=== PATIENT | female | born 2000 | race Caucasian/White ===

== ENCOUNTER 2024-02-28 12:09 | Inpatient (IN) | payer MEDICAID, SELFPAY ==
[2024-02-28 12:53] VITALS: BMI 25.2
[2024-02-28] MEDS ORDERED: Acetaminophen 500 MG TAB PO PRN (13:26)
[2024-02-28] MEDS ORDERED: Ondansetron PF 4 MG/2 ML Vial IVP PRN (13:26)
[2024-02-28] MEDS ORDERED: hydrALAZINE 20 MG/ML VIAL SLOW IVP PRN (13:26)
[2024-02-28 13:35] LABS: #Basophils 0.02 10x3/uL (0.0-0.2); #Eosinophils 0.05 10x3/uL (0.0-0.5); #Monocytes 0.38 10x3/uL (0.0-1.1); #Neutrophils 5.22 10x3/uL (1.5-8.4); %Basophils 0.3 % (0.0-2.0); %Eosinophils 0.7 % (0.0-6.0); %Lymphocytes 20.7 % (18.0-47.0); %Monocytes 5.3 % (0.0-10.0); %Neutrophils 72.4 % (40.0-75.0); Hematocrit 31.1 % (34.9-44.5); Hemoglobin 10.6 g/dL (12.0-15.5); Mean Corpuscular HGB CONC 34.1 g/dL (32.0-36.0); Mean Corpuscular Hemoglobin 29.9 pg (27.0-33.0); Mean Corpuscular Volume 87.9 fL (81.6-98.3); Mean Platelet Volume 9.9 fL (7.4-10.4); Platelet Count 287 10x3/uL (150-450); RBC Distribution Width 13.5 % (11.5-14.5); Red Blood Cell (RBC) Count 3.54 10x6/uL (3.90-5.03); White Blood Cell (WBC) Count 7.2 10x3/uL (3.5-10.5)
[2024-02-28] MEDS ORDERED: Ondansetron ODT 4 MG TAB PO PRN (13:45)
[2024-02-28] MEDS ORDERED: Acetaminophen 650 MG Suppository PR PRN (13:45)
[2024-02-28] MEDS ORDERED: Acetaminophen 325 MG TAB PO PRN (13:45)
[2024-02-28 13:53] LABS: ALT (SGPT) 61 U/L (8-55); AST (SGOT) 92 U/L (5-34); Albumin 2.7 g/dL (3.5-5.0); Alkaline Phosphatase 74 U/L (40-110); Anion Gap 13 mmol/L (10-20); BUN (Urea Nitrogen) 7 mg/dL (7.0-18.7); Bilirubin, Total 0.6 mg/dL (0.2-1.2); Calc. Creatinine Clearance 147 mL/min (70-130); Calcium 8.2 mg/dL (7.8-10.44); Carbon Dioxide 21 mmol/L (22-29); Chloride 100 mmol/L (98-107); Estimated GFR 130; Globulin 3.8 g/dL (2.4-3.5); Glucose 98 mg/dL (70-105); Potassium 3.2 mmol/L (3.5-5.1); Protein, Total 6.5 g/dL (6.0-8.3); Sodium 131 mmol/L (136-145)
[2024-02-28] MEDS ORDERED: cefTRIAXone\\ROCEPHIN 1 GM in Sodium Chloride 0.9% 100 ML IVPB SCH (14:00)
[2024-02-28] MEDS: cefTRIAXone\\ROCEPHIN 2 GM in Sodium Chloride 0.9% 100 ML IVPB SCH (15:32)
[2024-02-28] MEDS: Sodium Chloride 0.9% 1,000 ML IV SCH (15:32)
[2024-02-28 19:11] LABS: Bacteria/HPF Rare-Few HPF (None Seen); RBC/HPF 0-3 HPF (0-3); Squamous Epithelial 0-3 HPF (0-3); WBC/HPF 0-3 HPF (0-3)
[2024-02-28] MEDS: Potassium Chloride 20 MEQ TAB PO SCH (20:13)
[2024-02-28] MEDS: Sodium Chloride 0.9% 500 ML IV SCH (22:26)
[2024-02-29 09:24] LABS: #Basophils 0.02 10x3/uL (0.0-0.2); #Eosinophils 0.07 10x3/uL (0.0-0.5); #Monocytes 0.29 10x3/uL (0.0-1.1); #Neutrophils 4.76 10x3/uL (1.5-8.4); %Basophils 0.3 % (0.0-2.0); %Lymphocytes 24.8 % (18.0-47.0); %Monocytes 4.2 % (0.0-10.0); %Neutrophils 69.1 % (40.0-75.0); Hematocrit 29.2 % (34.9-44.5); Hemoglobin 9.7 g/dL (12.0-15.5); Mean Corpuscular HGB CONC 33.2 g/dL (32.0-36.0); Mean Corpuscular Hemoglobin 29.4 pg (27.0-33.0); Mean Corpuscular Volume 88.5 fL (81.6-98.3); Mean Platelet Volume 9.8 fL (7.4-10.4); Platelet Count 275 10x3/uL (150-450); RBC Distribution Width 13.9 % (11.5-14.5); White Blood Cell (WBC) Count 6.9 10x3/uL (3.5-10.5)
[2024-02-29 09:42] LABS: ALT (SGPT) 72 U/L (8-55); AST (SGOT) 113 U/L (5-34); Albumin 2.3 g/dL (3.5-5.0); Alkaline Phosphatase 71 U/L (40-110); Anion Gap 12 mmol/L (10-20); BUN (Urea Nitrogen) 5 mg/dL (7.0-18.7); Bilirubin, Total 0.6 mg/dL (0.2-1.2); Calc. Creatinine Clearance 156 mL/min (70-130); Calcium 8.2 mg/dL (7.8-10.44); Carbon Dioxide 21 mmol/L (22-29); Chloride 106 mmol/L (98-107); Estimated GFR 132; Globulin 3.4 g/dL (2.4-3.5); Glucose 87 mg/dL (70-105); Potassium 3.6 mmol/L (3.5-5.1); Protein, Total 5.7 g/dL (6.0-8.3); Sodium 135 mmol/L (136-145)
[2024-02-29 12:04] LABS: Cardiac Risk 6.5 (Less than 4.5)
[2024-03-01 04:12] LABS: ALT (SGPT) 70 U/L (8-55); AST (SGOT) 89 U/L (5-34); Albumin 2.3 g/dL (3.5-5.0); Alkaline Phosphatase 72 U/L (40-110); Anion Gap 13 mmol/L (10-20); BUN (Urea Nitrogen) 4 mg/dL (7.0-18.7); Bilirubin, Total 0.4 mg/dL (0.2-1.2); Calc. Creatinine Clearance 153 mL/min (70-130); Calcium 7.9 mg/dL (7.8-10.44); Carbon Dioxide 21 mmol/L (22-29); Chloride 106 mmol/L (98-107); Estimated GFR 131; Globulin 2.9 g/dL (2.4-3.5); Glucose 82 mg/dL (70-105); Potassium 3.7 mmol/L (3.5-5.1); Protein, Total 5.2 g/dL (6.0-8.3); Sodium 136 mmol/L (136-145)
[2024-03-01 11:21] VITALS: BP 94/54; TEMP 98.3
== END 2024-03-01 13:15 | disposition home or self-care (01) | DRG 833 ==
LOC: CSHANTE 12:09
PROVIDERS: ADMIT Student in an Organized Health Care Education/Training Program; ATTEND Student in an Organized Health Care Education/Training Program
DX: O23.02 Infections of kidney in pregnancy, second trimester (principal); Z3A.24 24 weeks gestation of pregnancy; Z79.1 Long term (current) use of non-steroidal anti-inflammatories (NSAID); Z79.899 Other long term (current) drug therapy; R74.8 Abnormal levels of other serum enzymes; R74.01 Elevation of levels of liver transaminase levels
CPT/HCPCS: 36415; 76705; 76770; 76815; 80053; 80061; 81015; 84145; 85025; 86140; 87040; 87086; J0696; J7030